=== PATIENT | female | born 1980 | race Caucasian/White ===

== ENCOUNTER 2021-08-12 12:26 | Outpatient (REF) | payer MEDICAID, SELFPAY ==
[2021-08-12 15:27] LABS: COVID-19 Test Negative (Negative)
== END 2021-08-12 12:27 | disposition home or self-care (01) ==
LOC: HO.LAB 12:26
PROVIDERS: Visit Provider Internal Medicine
DX: Z20.822 Contact with and (suspected) exposure to COVID-19 (principal)
CPT/HCPCS: 36415; 87635; C9803

== ENCOUNTER 2023-01-24 09:00 | Outpatient (REF) | payer OTHER, SELFPAY ==
--- NOTE | ~2023-01-24 | MM_ITS ---
EXAMINATION: MM DIAGNOSTIC DIGITAL MAMMOGRAPHY, RIGHT US DIAGNOSTIC ULTRASOUND BREAST, RIGHT CLINICAL INFORMATION: 42-year-old, recall from outside baseline mammography for incompletely characterized calcifications upper outer quadrant. TC score 9%. 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 Routine clinical exam since outside baseline mammography noted palpable area upper outer right breast. No palpable concern noted by patient. No discharge. COMPARISON: Outside mammography 11/18/2022 ([facility]). TECHNIQUE: Digital mammography right breast is performed in the following views: Magnification right CC, magnification right ML x3. Ultrasound right breast is targeted to the outer and upper breast 9:00 through 2:00 position and right axilla using grayscale imaging and color Doppler without and with harmonics. FINDINGS: The breasts are extremely dense, which lowers the sensitivity of mammography (ACR BI-RADS breast composition Category d). The additional magnification views show a few incidental scattered calcifications right breast central and upper outer quadrant. No focal suspicious grouping or ductal distribution or pleomorphic types. Ultrasound right breast demonstrates no cystic or solid mass or architectural abnormality. No focal duct ectasia. No skin thickening or edema tracking in soft tissue planes. No axillary adenopathy. Results are discussed with the patient at time of visit. MM/MM tomosynthesis added views R IMPRESSION: -Additional magnification views right breast show no suspicious calcifications. -Ultrasound right breast shows no cystic or solid mass. No adenopathy right axilla. ASSESSMENT: BI-RADS 2: Benign RECOMMENDATION: Routine annual mammography screening. This patient's information was entered into a reminder system with a target due date for their next mammogram.
== END 2023-01-24 09:01 | disposition home or self-care (01) ==
LOC: HO.MAMMO 09:00
PROVIDERS: Visit Provider Family Medicine
DX: N63.11 Unspecified lump in the right breast, upper outer quadrant (principal)
CPT/HCPCS: 76642; 77061; 77065